=== PATIENT | female | born 1960 | race African-American/Black ===

== ENCOUNTER 2018-10-16 03:47 | Inpatient (IN) | payer MEDICARE, OTHER ==
[~2018-10-16] VITALS: Ht 157.5 cm; Wt 112.3 kg
[~2018-10-16 03:47] MED LIST: ASPI-986 PO; BENA20TA10 PO; CLOP75TA16 PO; GLUCOMETER; GLUCOMETER STRIPS; GLYB5TAB7 PO; INSULIN NPH SUBCUT; LIP40 PO; METF-416 PO; [UNRECOGNIZED DRUG - CODE] MC; [UNRECOGNIZED DRUG - SUPPLY]
[2018-10-16 09:53] LABS: HEMATOCRIT. 35.2 % (36.0-48.0); MEAN CORPUSCULAR HEMOGLOBIN 24.5 pg (28.0-32.0); MEAN CORPUSCULAR VOLUME 78.3 fL (81.0-99.0); MEAN PLATELET VOLUME 9.7 fl (7.4-10.4); PLATELET 233 x1000/uL (130-400); RED BLOOD CELL COUNT 4.49 mill/uL (4.2-5.4); RED CELL DISTRIBUTION WIDTH 20.1 % (11.6-14.6)
[2018-10-16 10:00] LABS: CHLORIDE 114 mEq/L (98-107)
[2018-10-16 10:25] LABS: PLATELET ESTIMATE NORMAL
[2018-10-16] MEDS ORDERED: ACETAMINOPHEN 325MG TABLET PO PRN (12:15)
[2018-10-16] MEDS ORDERED: DOCUSATE SODIUM 100MG CAPSULE PO PRN (12:15)
[2018-10-16] MEDS ORDERED: HYDROCODONE/ACETAMINOPHEN 5/325MG TABLET PO PRN (12:15)
[2018-10-16] MEDS ORDERED: NA PHOS,M-B/NA PHOS,DI-BA ENEMA 118ML PR PRN (12:15)
[2018-10-16] MEDS ORDERED: MAGNESIUM/ALUMINUM HYDROXIDE/SIMETHICONE 30ML UDC PO PRN (12:15)
[2018-10-16] MEDS ORDERED: CLONIDINE 0.1MG TABLET PO PRN (12:15)
[2018-10-16] MEDS: AMLODIPINE 10MG TABLET PO SCH (15:22)
[2018-10-16] MEDS: ENOXAPARIN 40MG/0.4ML SYR SUBCUT SCH (15:30)
[2018-10-16 16:12] LABS: CREATINE KINASE 149 IU/L (26-192)
[2018-10-16 16:13] LABS: CREATINE KINASE MB FRACTION 6.4 ng/mL (0.5-3.6)
[2018-10-16] MEDS ORDERED: METOPROLOL TARTRATE 25MG TABLET PO SCH (17:00)
[2018-10-16 23:39] LABS: CREATINE KINASE 147 IU/L (26-192)
[2018-10-16 23:40] LABS: CREATINE KINASE MB FRACTION 6.8 ng/mL (0.5-3.6)
[2018-10-17] MEDS: ONDANSETRON HCL 4MG/2ML INJ IV PRN ×2 (03:01→11:23)
[2018-10-17 05:26] LABS: CHLORIDE 113 mEq/L (98-107)
[2018-10-17 05:33] LABS: LDL CHOLESTEROL 30 mg/dL (5-100)
[2018-10-17 05:34] LABS: HDL CHOLESTEROL 53 mg/dL (40-59)
[2018-10-17 06:11] LABS: HEMATOCRIT. 32.4 % (36.0-48.0); MEAN CORPUSCULAR HEMOGLOBIN 23.9 pg (28.0-32.0); MEAN CORPUSCULAR VOLUME 77.7 fL (81.0-99.0); MEAN PLATELET VOLUME 10.1 fl (7.4-10.4); PLATELET 226 x1000/uL (130-400); RED BLOOD CELL COUNT 4.17 mill/uL (4.2-5.4); RED CELL DISTRIBUTION WIDTH 20.2 % (11.6-14.6)
[2018-10-17 07:45] LABS: PLATELET ESTIMATE NORMAL
[2018-10-17 09:15] VITALS: BP 144/85
[2018-10-17 09:30] VITALS: BP 144/85
[2018-10-17] MEDS: FUROSEMIDE 40MG/4ML VIAL IV SCH (10:46)
[2018-10-17] MEDS: AMLODIPINE 10MG TABLET PO SCH (10:47)
[2018-10-17] MEDS: ASPIRIN 81MG EC TABLET PO SCH (10:47)
[2018-10-17 12:13] VITALS: BP 154/86
[2018-10-17] MEDS ORDERED: DEXTROSE 50% WATER 50ML SYRINGE IV PRN (15:00)
[2018-10-17 16:16] VITALS: BP 136/77
[2018-10-17] MEDS ORDERED: AMLO5TAB88 MT (16:53)
[2018-10-17] MEDS ORDERED: NEPVIT MT (16:53)
[2018-10-17] MEDS ORDERED: ISOS60TA4 MT (16:53)
[2018-10-17] MEDS ORDERED: FURO40TA5 MT (16:53)
[2018-10-17] MEDS ORDERED: ACET-2853 MT (16:53)
[2018-10-17] MEDS ORDERED: FAMO20TA8 MT (16:53)
[2018-10-17] MEDS ORDERED: OXYB5TAB11 PO (16:53)
[2018-10-17] MEDS ORDERED: INSU100I28 SQ (16:53)
[2018-10-17] MEDS: ENOXAPARIN 40MG/0.4ML SYR SUBCUT SCH (17:27)
[2018-10-17] MEDS: BLOOD SUGAR DIAGNOSTIC STRIP TEST SCH ×2 (17:47→21:00)
[2018-10-17] MEDS: INSULIN LISPRO 100 UNITS/ML SUBCUT SCH ×2 (17:53→21:22)
[2018-10-17 20:00] VITALS: BP 118/70
[2018-10-17 23:54] VITALS: BP 153/92
[2018-10-18 04:00] VITALS: BP 158/95
[2018-10-18] MEDS: BLOOD SUGAR DIAGNOSTIC STRIP TEST SCH ×3 (06:40→17:31)
[2018-10-18] MEDS: INSULIN LISPRO 100 UNITS/ML SUBCUT SCH ×3 (07:43→17:31)
[2018-10-18 08:00] VITALS: BP 130/80
[2018-10-18] MEDS: FUROSEMIDE 40MG/4ML VIAL IV SCH (08:57)
[2018-10-18] MEDS: ASPIRIN 81MG EC TABLET PO SCH (08:58)
[2018-10-18] MEDS: AMLODIPINE 10MG TABLET PO SCH (08:58)
[2018-10-18 11:35] VITALS: BP 130/72
[2018-10-18 16:02] VITALS: BP 134/76
[2018-10-18] MEDS: ENOXAPARIN 40MG/0.4ML SYR SUBCUT SCH (16:19)
[2018-10-18 17:34] VITALS: BP 134/78
== END 2018-10-18 19:35 | disposition home health service (06) | DRG 291 ==
LOC: ER 03:47 → 6WST 10:44 → SUPCPDRO 12:08 → EDBEDREQSVC 21:09 → ENRESERV 10-17 07:21
PROVIDERS: ADMIT Hospitalist; ATTEND Hospitalist
DX: I13.0 Hypertensive heart and chronic kidney disease with heart failure and stage 1 through stage 4 chronic kidney disease, or unspecified chronic kidney disease (principal); I50.33 Acute on chronic diastolic (congestive) heart failure; N17.9 Acute kidney failure, unspecified; I69.354 Hemiplegia and hemiparesis following cerebral infarction affecting left non-dominant side; N18.9 Chronic kidney disease, unspecified; E78.5 Hyperlipidemia, unspecified; E11.22 Type 2 diabetes mellitus with diabetic chronic kidney disease; Z79.4 Long term (current) use of insulin; Z88.6 Allergy status to analgesic agent; Z79.82 Long term (current) use of aspirin; Z79.84 Long term (current) use of oral hypoglycemic drugs; Z79.899 Other long term (current) drug therapy
CPT/HCPCS: 36415; 71045; 80061; 82550; 82553; 82962; 83036; 83735; 83880; 84484; 93005; 93306; 93970; 96374; 99285; J1650; J1815; J1940; J2405

== ENCOUNTER 2019-08-02 09:26 | Inpatient (IN) | payer MEDICARE, MEDICAID ==
[~2019-08-02] VITALS: Ht 157.5 cm; Wt 78.9 kg
[~2019-08-02 09:26] MED LIST changes: +ACET-2853 MT; +AMLO5TAB88 MT; -CLOP75TA16 PO; +CLOP75TA4 PO; +FAMO20TA8 MT; +FURO40TA5 MT; +INSU100I28 SQ; +ISOS60TA4 MT; +NEPVIT MT; +OXYB5TAB11 PO
[2019-08-02] MEDS ORDERED: ASPIRIN 81MG TABLET PO ONE (10:30)
[2019-08-02] MEDS ORDERED: FUROSEMIDE 40MG/4ML VIAL IV ONE (10:30)
[2019-08-02 10:46] LABS: BASOPHILS % 1.2 % (0.0-2.0); EOSINOPHILS % 3.2 % (0.0-5.0); HEMATOCRIT. 32.4 % (36.0-48.0); HEMOGLOBIN. 10.3 g/dL (12.0-16.0); LYMPHOCYTES % 20.6 % (20.0-50.0); MEAN CORPUSCULAR HEMOGLOBIN 27.7 pg (28.0-32.0); MEAN CORPUSCULAR VOLUME 87.1 fL (81.0-99.0); MEAN PLATELET VOLUME 8.9 fl (7.4-10.4); MONOCYTES % 12.5 % (2.0-8.0); NEUTROPHILS % 62.5 % (40.0-76.0); PLATELET 300 x1000/uL (130-400); RED BLOOD CELL COUNT 3.73 mill/uL (4.2-5.4); RED CELL DISTRIBUTION WIDTH 21.8 % (11.6-14.6)
[2019-08-02 12:16] LABS: CLARITY URINE CLEAR (CLEAR); COLOR URINE YELLOW (YELLOW); KETONES URINE NEGATIVE (NEGATIVE); LEUKOCYTE ESTERASE URINE NEGATIVE (NEGATIVE); NITRITE URINE NEGATIVE (NEGATIVE); OCCULT BLOOD URINE TRACE (NEGATIVE); PH URINE 5.5 (4.5-8.0); PROTEIN URINE 2+ (NEGATIVE); SPECIFIC GRAVITY URINE 1.008 (1.005-1.030); UROBILINOGEN URINE 0.2 E.U./dL (0.2-1.0)
[2019-08-02 12:37] LABS: CHLORIDE 116 mEq/L (98-107)
[2019-08-02] MEDS ORDERED: HYDRALAZINE HCL 100MG TABLET PO ONE (12:45)
[2019-08-02 15:37] VITALS: BP 150/86
[2019-08-02] MEDS ORDERED: ENOXAPARIN 40MG/0.4ML SYR SUBCUT SCH (16:45)
[2019-08-02] MEDS ORDERED: DEXTROSE 50% WATER 50ML SYRINGE IV PRN ×2 (16:45)
[2019-08-02] MEDS: BLOOD SUGAR DIAGNOSTIC STRIP TEST SCH ×2 (16:53→20:30)
[2019-08-02] MEDS: ENOXAPARIN 30MG/0.3ML SYR SUBCUT SCH (18:22)
[2019-08-02] MEDS: INSULIN LISPRO 100 UNITS/ML SUBCUT SCH ×2 (18:23→20:41)
[2019-08-02] MEDS ORDERED: INFLUENZA VIRUS VACCINE(AFLURIA) 0.5ML SYR IM ONE (19:30)
[2019-08-02 20:22] VITALS: BP 154/87
[2019-08-03 00:35] VITALS: BP 138/74
[2019-08-03 04:11] VITALS: BP 125/65
[2019-08-03] MEDS: BLOOD SUGAR DIAGNOSTIC STRIP TEST SCH ×4 (06:21→20:42)
[2019-08-03] MEDS: INSULIN LISPRO 100 UNITS/ML SUBCUT SCH ×4 (07:19→20:42)
[2019-08-03 08:05] VITALS: BP 183/96
[2019-08-03] MEDS: FUROSEMIDE 40MG/4ML VIAL IVP SCH (08:32)
[2019-08-03] MEDS ORDERED: ASPIRIN 325MG EC TABLET PO SCH (09:30)
[2019-08-03] MEDS ORDERED: ACETAMINOPHEN 650MG/20.3ML UDC PO PRN (09:30)
[2019-08-03] MEDS: CLOPIDOGREL 75MG TABLET PO SCH (10:06)
[2019-08-03] MEDS: FOLIC ACID/VITAMIN B COMP W-C TABLET PO SCH (10:06)
[2019-08-03] MEDS: BENAZEPRIL 10MG TABLET PO SCH (10:06)
[2019-08-03] MEDS: AMLODIPINE 5MG TABLET PO SCH (10:07)
[2019-08-03] MEDS: ISOSORBIDE MONONITRATE 60MG TABLET SR 24HR PO SCH (10:07)
[2019-08-03] MEDS: OXYBUTYNIN CHLORIDE 5MG TABLET PO SCH (10:11)
[2019-08-03 11:54] VITALS: BP 172/97
[2019-08-03 13:57] LABS: *AMPHETAMINES SCREEN URINE NEGATIVE (NEGATIVE); *BARBITURATES SCREEN URINE NEGATIVE (NEGATIVE); *BENZODIAZEPINES SCREEN URINE NEGATIVE (NEGATIVE); *COCAINE SCREEN URINE NEGATIVE (NEGATIVE)
[2019-08-03 13:58] LABS: CANNABINOID URINE SCREEN NEGATIVE (NEGATIVE); METHADONE URINE SCREEN NEGATIVE (NEGATIVE); OPIATES URINE SCREEN NEGATIVE (NEGATIVE); PHENCYCLIDINE URINE SCREEN NEGATIVE (NEGATIVE)
[2019-08-03] MEDS ORDERED: CLONIDINE 0.1MG TABLET PO PRN ×2 (15:15)
[2019-08-03 15:57] VITALS: BP 173/87
[2019-08-03] MEDS: GLYBURIDE 5MG TABLET PO SCH (16:59)
[2019-08-03] MEDS: ENOXAPARIN 30MG/0.3ML SYR SUBCUT SCH (17:00)
[2019-08-03 20:00] VITALS: BP_SYST 135; BP_SYST 156; BP_DIAS 77; BP_DIAS 81
[2019-08-03 20:14] LABS: CREATINE KINASE MB FRACTION 2.5 ng/mL (0.5-3.6)
[2019-08-03 20:15] LABS: T4 FREE 1.21 ng/dL (0.76-1.46)
[2019-08-03] MEDS ORDERED: FAMOTIDINE 20MG TABLET PO SCH (21:00)
[2019-08-03] MEDS ORDERED: ATORVASTATIN CALCIUM 40MG TABLET PO SCH (21:00)
[2019-08-04] VITALS: BP 160/90
[2019-08-04 04:00] VITALS: BP 150/86
[2019-08-04] MEDS: GLYBURIDE 5MG TABLET PO SCH ×2 (06:36→18:01)
[2019-08-04] MEDS: BLOOD SUGAR DIAGNOSTIC STRIP TEST SCH ×3 (06:36→17:48)
[2019-08-04] MEDS: INSULIN LISPRO 100 UNITS/ML SUBCUT SCH ×3 (07:08→17:48)
[2019-08-04 07:23] LABS: CREATINE KINASE MB FRACTION 2.8 ng/mL (0.5-3.6)
[2019-08-04] MEDS: FOLIC ACID/VITAMIN B COMP W-C TABLET PO SCH (08:42)
[2019-08-04] MEDS: OXYBUTYNIN CHLORIDE 5MG TABLET PO SCH (08:42)
[2019-08-04] MEDS: BENAZEPRIL 10MG TABLET PO SCH (08:42)
[2019-08-04] MEDS: AMLODIPINE 5MG TABLET PO SCH (08:42)
[2019-08-04] MEDS: CLOPIDOGREL 75MG TABLET PO SCH (08:43)
[2019-08-04] MEDS: ISOSORBIDE MONONITRATE 60MG TABLET SR 24HR PO SCH (08:43)
[2019-08-04] MEDS: FUROSEMIDE 40MG/4ML VIAL IVP SCH (08:43)
[2019-08-04] MEDS ORDERED: ASPIRIN 325MG EC TABLET PO SCH (09:00)
[2019-08-04 12:00] VITALS: BP 150/81
[2019-08-04 14:55] VITALS: BP 150/81
[2019-08-04 16:00] VITALS: BP 158/88
[2019-08-04] MEDS ORDERED: HYDRALAZINE HCL 50MG TABLET PO SCH (17:00)
[2019-08-04] MEDS: ENOXAPARIN 30MG/0.3ML SYR SUBCUT SCH (18:02)
[2019-08-20] MEDS ORDERED: ASPI-1393 PO (01:07)
== END 2019-08-04 18:52 | disposition home or self-care (01) | DRG 292 ==
LOC: ER 09:55 → EDBEDREQ 13:24 → EDBEDREQTM 13:24 → ENRESERV 14:16 → 6WST 16:22
PROVIDERS: ADMIT Family Medicine; ATTEND Family Medicine
DX: I11.0 Hypertensive heart disease with heart failure (principal); J98.11 Atelectasis; E44.0 Moderate protein-calorie malnutrition; I50.41 Acute combined systolic (congestive) and diastolic (congestive) heart failure; N28.9 Disorder of kidney and ureter, unspecified; M79.604 Pain in right leg; M79.605 Pain in left leg; E66.9 Obesity, unspecified; D64.9 Anemia, unspecified; E11.9 Type 2 diabetes mellitus without complications; E78.5 Hyperlipidemia, unspecified; Z86.73 Personal history of transient ischemic attack (TIA), and cerebral infarction without residual deficits; Z79.899 Other long term (current) drug therapy; Z79.82 Long term (current) use of aspirin; Z79.4 Long term (current) use of insulin; Z79.84 Long term (current) use of oral hypoglycemic drugs; Z88.8 Allergy status to other drugs, medicaments and biological substances; Z91.14 Patient's other noncompliance with medication regimen; Z68.35 Body mass index [BMI] 35.0-35.9, adult
CPT/HCPCS: 36415; 71045; 80053; 80061; 80305; 81003; 82550; 82553; 82962; 83036; 83880; 84439; 84443; 84484; 85025; 85379; 90686; 93005; 93306; 93970; 96374; 99285; J1650; J1815; J1940

== ENCOUNTER 2019-08-19 12:46 | Inpatient (IN) | payer MEDICARE, MEDICAID ==
[~2019-08-19] VITALS: Ht 158.8 cm; Wt 90.7 kg
[~2019-08-19 12:46] MED LIST changes: -ACET-2853 MT; -GLUCOMETER; -GLUCOMETER STRIPS; -INSULIN NPH SUBCUT; -OXYB5TAB11 PO; +OXYB5TAB17 PO; -[UNRECOGNIZED DRUG - SUPPLY]
[2019-08-19] MEDS ORDERED: NITROGLYCERIN OINT 1GM/INCH UDPKT TD ONE (16:45)
[2019-08-19] MEDS ORDERED: ASPIRIN 81MG TABLET PO ONE (16:45)
[2019-08-19] MEDS ORDERED: FUROSEMIDE 40MG/4ML VIAL IV ONE (16:45)
[2019-08-19 17:51] LABS: CHLORIDE 112 mEq/L (98-107)
[2019-08-19 17:56] LABS: BASOPHILS % 1.1 % (0.0-2.0); EOSINOPHILS % 2.8 % (0.0-5.0); HEMATOCRIT. 33.7 % (36.0-48.0); HEMOGLOBIN. 10.6 g/dL (12.0-16.0); LYMPHOCYTES % 23.2 % (20.0-50.0); MEAN CORPUSCULAR HEMOGLOBIN 27.7 pg (28.0-32.0); MEAN CORPUSCULAR VOLUME 87.8 fL (81.0-99.0); MEAN PLATELET VOLUME 10.4 fl (7.4-10.4); MONOCYTES % 8.6 % (2.0-8.0); NEUTROPHILS % 64.3 % (40.0-76.0); PLATELET 235 x1000/uL (130-400); RED BLOOD CELL COUNT 3.84 mill/uL (4.2-5.4); RED CELL DISTRIBUTION WIDTH 17.9 % (11.6-14.6)
[2019-08-19 17:58] LABS: INR 1.2; PROTHROMBIN TIME 12.2 sec (9.6-11.0)
[2019-08-20] VITALS (8 sets, daily range): BP systolic 127–163; BP diastolic 71–98
[2019-08-20] MEDS ORDERED: IPRATROPIUM/ALBUTEROL 0.5-3(2.5)MG/3ML NEB HHN PRN (00:45)
[2019-08-20] MEDS ORDERED: ACETAMINOPHEN 325MG TABLET PO PRN (00:45)
[2019-08-20] MEDS ORDERED: DIPHENHYDRAMINE 50MG/ML VIAL IV PRN (00:45)
[2019-08-20] MEDS ORDERED: MAGNESIUM/ALUMINUM HYDROXIDE/SIMETHICONE 30ML UDC PO PRN (00:45)
[2019-08-20] MEDS ORDERED: ONDANSETRON HCL 4MG/2ML INJ IV PRN (00:45)
[2019-08-20] MEDS ORDERED: GUAIFENESIN 200MG/10ML SUGAR FREE UDC PO PRN (00:45)
[2019-08-20] MEDS ORDERED: DEXTROSE 50% WATER 50ML SYRINGE IV PRN (00:45)
[2019-08-20] MEDS ORDERED: CLONIDINE 0.1MG TABLET PO PRN (00:45)
[2019-08-20] MEDS ORDERED: ASPI-1497 PO (01:07)
[2019-08-20] MEDS: NITROGLYCERIN OINT 1GM/INCH UDPKT TD SCH ×3 (06:46→22:10)
[2019-08-20] MEDS: GLYBURIDE 5MG TABLET PO SCH (06:47)
[2019-08-20] MEDS: SODIUM CHLORIDE 0.9% INJ 3ML FLUSH IVF SCH ×3 (06:47→20:40)
[2019-08-20] MEDS: INSULIN LISPRO 100 UNITS/ML SUBCUT SCH ×4 (08:20→20:46)
[2019-08-20] MEDS ORDERED: ENOXAPARIN 40MG/0.4ML SYR SUBCUT SCH (09:00)
[2019-08-20] MEDS ORDERED: FUROSEMIDE 40MG/4ML VIAL IVP SCH (09:00)
[2019-08-20] MEDS ORDERED: HYDRALAZINE HCL 50MG TABLET PO SCH (09:00)
[2019-08-20] MEDS ORDERED: AMLODIPINE 5MG TABLET PO SCH (09:00)
[2019-08-20] MEDS: CLOPIDOGREL 75MG TABLET PO SCH (09:47)
[2019-08-20] MEDS: ENOXAPARIN 30MG/0.3ML SYR SUBCUT SCH ×2 (09:48→20:40)
[2019-08-20] MEDS: ASPIRIN 325MG EC TABLET PO SCH (09:49)
[2019-08-20] MEDS: BLOOD SUGAR DIAGNOSTIC STRIP TEST SCH ×3 (11:45→20:40)
[2019-08-20] MEDS: FUROSEMIDE 40MG/4ML VIAL IVP SCH ×2 (13:19→17:59)
[2019-08-20] MEDS: AMLODIPINE 5MG TABLET PO SCH ×2 (13:21→20:39)
[2019-08-20] MEDS: HYDRALAZINE HCL 50MG TABLET PO SCH ×2 (15:22→22:10)
[2019-08-20] MEDS: INSULIN GLARGINE UD 100 UNITS/ML SYR SUBCUT SCH (15:23)
[2019-08-20 16:31] LABS: LDL CHOLESTEROL 47 mg/dL (5-100)
[2019-08-20 16:33] LABS: CREATINE KINASE 385 IU/L (26-192); HDL CHOLESTEROL 55 mg/dL (40-59)
[2019-08-20 16:34] LABS: CREATINE KINASE MB FRACTION 3.3 ng/mL (0.5-3.6); T4 FREE 1.33 ng/dL (0.76-1.46)
[2019-08-20] MEDS: FAMOTIDINE 20MG TABLET PO SCH (20:39)
[2019-08-20] MEDS: ATORVASTATIN CALCIUM 40MG TABLET PO SCH (20:39)
[2019-08-20 23:27] LABS: CREATINE KINASE 414 IU/L (26-192)
[2019-08-20 23:28] LABS: CREATINE KINASE MB FRACTION 3.6 ng/mL (0.5-3.6)
[2019-08-21] VITALS: BP 120/75
[2019-08-21 04:00] VITALS: BP 125/74
[2019-08-21] MEDS: SODIUM CHLORIDE 0.9% INJ 3ML FLUSH IVF SCH ×3 (06:43→22:39)
[2019-08-21] MEDS: BLOOD SUGAR DIAGNOSTIC STRIP TEST SCH ×4 (06:44→20:41)
[2019-08-21] MEDS: NITROGLYCERIN OINT 1GM/INCH UDPKT TD SCH ×3 (06:44→22:39)
[2019-08-21] MEDS: HYDRALAZINE HCL 50MG TABLET PO SCH ×3 (06:44→22:39)
[2019-08-21] MEDS: INSULIN LISPRO 100 UNITS/ML SUBCUT SCH ×4 (06:45→20:41)
[2019-08-21] MEDS: GLYBURIDE 5MG TABLET PO SCH (06:45)
[2019-08-21] MEDS: FUROSEMIDE 40MG/4ML VIAL IVP SCH ×2 (06:46→17:31)
[2019-08-21 08:00] VITALS: BP 141/88
[2019-08-21] MEDS: ENOXAPARIN 30MG/0.3ML SYR SUBCUT SCH (09:25)
[2019-08-21] MEDS: AMLODIPINE 5MG TABLET PO SCH ×2 (09:25→20:45)
[2019-08-21] MEDS: ASPIRIN 325MG EC TABLET PO SCH (09:25)
[2019-08-21] MEDS: CLOPIDOGREL 75MG TABLET PO SCH (09:25)
[2019-08-21 10:00] LABS: BASOPHILS % 0.4 % (0.0-2.0); EOSINOPHILS % 3.3 % (0.0-5.0); HEMATOCRIT. 29.3 % (36.0-48.0); HEMOGLOBIN. 9.6 g/dL (12.0-16.0); LYMPHOCYTES % 20.5 % (20.0-50.0); MEAN CORPUSCULAR HEMOGLOBIN 28.5 pg (28.0-32.0); MEAN CORPUSCULAR VOLUME 86.8 fL (81.0-99.0); MEAN PLATELET VOLUME 9.7 fl (7.4-10.4); MONOCYTES % 13.6 % (2.0-8.0); NEUTROPHILS % 62.2 % (40.0-76.0); PLATELET 265 x1000/uL (130-400); RED BLOOD CELL COUNT 3.38 mill/uL (4.2-5.4); RED CELL DISTRIBUTION WIDTH 17.9 % (11.6-14.6)
[2019-08-21 10:38] LABS: CHLORIDE 110 mEq/L (98-107)
[2019-08-21 10:45] LABS: PHOSPHORUS 3.5 mg/dL (2.5-4.9)
[2019-08-21 10:48] LABS: CREATINE KINASE 371 IU/L (26-192)
[2019-08-21] MEDS: INSULIN GLARGINE UD 100 UNITS/ML SYR SUBCUT SCH (11:08)
[2019-08-21 12:00] VITALS: BP 127/82
[2019-08-21] MEDS: CARVEDILOL 3.125 MG TABLET PO SCH ×2 (13:22→20:45)
[2019-08-21 16:00] VITALS: BP 132/86
[2019-08-21 20:00] VITALS: BP 153/85
[2019-08-21] MEDS: ATORVASTATIN CALCIUM 40MG TABLET PO SCH (20:44)
[2019-08-21] MEDS: FAMOTIDINE 20MG TABLET PO SCH (20:45)
[2019-08-22] VITALS: BP 130/80
[2019-08-22 04:00] VITALS: BP 135/75
[2019-08-22] MEDS: BLOOD SUGAR DIAGNOSTIC STRIP TEST SCH ×4 (05:50→20:49)
[2019-08-22] MEDS: NITROGLYCERIN OINT 1GM/INCH UDPKT TD SCH ×3 (06:17→21:54)
[2019-08-22] MEDS: HYDRALAZINE HCL 50MG TABLET PO SCH ×3 (06:17→21:53)
[2019-08-22] MEDS: GLYBURIDE 5MG TABLET PO SCH (06:17)
[2019-08-22] MEDS: FUROSEMIDE 40MG/4ML VIAL IVP SCH ×2 (06:17→17:54)
[2019-08-22] MEDS: SODIUM CHLORIDE 0.9% INJ 3ML FLUSH IVF SCH ×3 (06:17→21:54)
[2019-08-22] MEDS: INSULIN LISPRO 100 UNITS/ML SUBCUT SCH ×4 (06:18→22:04)
[2019-08-22 08:00] VITALS: BP 139/87
[2019-08-22] MEDS: CLOPIDOGREL 75MG TABLET PO SCH (09:07)
[2019-08-22] MEDS: AMLODIPINE 5MG TABLET PO SCH ×2 (09:07→21:53)
[2019-08-22] MEDS: ASPIRIN 325MG EC TABLET PO SCH (09:07)
[2019-08-22] MEDS: CARVEDILOL 3.125 MG TABLET PO SCH ×2 (09:07→21:53)
[2019-08-22] MEDS: ENOXAPARIN 40MG/0.4ML SYR SUBCUT SCH (09:08)
[2019-08-22] MEDS: INSULIN GLARGINE UD 100 UNITS/ML SYR SUBCUT SCH (10:18)
[2019-08-22 12:00] VITALS: BP 137/77
[2019-08-22 16:00] VITALS: BP 134/80
[2019-08-22 20:00] VITALS: BP 130/80
[2019-08-22] MEDS: ATORVASTATIN CALCIUM 40MG TABLET PO SCH (21:53)
[2019-08-22] MEDS: FAMOTIDINE 20MG TABLET PO SCH (21:53)
[2019-08-22] MEDS ORDERED: MAGNESIUM HYDROXIDE 400MG/5ML 30ML UDC PO PRN (23:30)
[2019-08-23] VITALS: BP 120/70
[2019-08-23 04:00] VITALS: BP 130/70
[2019-08-23] MEDS: HYDRALAZINE HCL 50MG TABLET PO SCH ×2 (05:25→13:42)
[2019-08-23] MEDS: SODIUM CHLORIDE 0.9% INJ 3ML FLUSH IVF SCH ×2 (05:25→13:41)
[2019-08-23] MEDS: NITROGLYCERIN OINT 1GM/INCH UDPKT TD SCH ×2 (05:25→13:42)
[2019-08-23] MEDS: BLOOD SUGAR DIAGNOSTIC STRIP TEST SCH ×3 (05:53→16:51)
[2019-08-23] MEDS: INSULIN LISPRO 100 UNITS/ML SUBCUT SCH ×3 (06:29→16:55)
[2019-08-23] MEDS: FUROSEMIDE 40MG/4ML VIAL IVP SCH (06:29)
[2019-08-23] MEDS: GLYBURIDE 5MG TABLET PO SCH (06:29)
[2019-08-23 08:00] VITALS: BP 144/87
[2019-08-23] MEDS ORDERED: NA PHOS,M-B/NA PHOS,DI-BA ENEMA 118ML PR SCH (08:45)
[2019-08-23] MEDS: CLOPIDOGREL 75MG TABLET PO SCH (09:44)
[2019-08-23] MEDS: CARVEDILOL 3.125 MG TABLET PO SCH (09:44)
[2019-08-23] MEDS: ASPIRIN 325MG EC TABLET PO SCH (09:45)
[2019-08-23] MEDS: AMLODIPINE 5MG TABLET PO SCH (09:45)
[2019-08-23] MEDS: ENOXAPARIN 40MG/0.4ML SYR SUBCUT SCH (09:45)
[2019-08-23 12:00] VITALS: BP 145/85
[2019-08-23 14:30] VITALS: BP 143/85
[2019-08-23 16:00] VITALS: BP 149/90
== END 2019-08-23 17:30 | DRG 682 ==
LOC: ER 12:46 → EDBEDREQ 19:11 → EDBEDREQTM 19:11 → ENRESERV 22:51 → 5WST 08-20 00:52 → CANBEDREQ 08-20 08:43
PROVIDERS: ADMIT Internal Medicine; ATTEND Internal Medicine
DX: N17.9 Acute kidney failure, unspecified (principal); I50.23 Acute on chronic systolic (congestive) heart failure; I13.0 Hypertensive heart and chronic kidney disease with heart failure and stage 1 through stage 4 chronic kidney disease, or unspecified chronic kidney disease; I42.9 Cardiomyopathy, unspecified; E78.5 Hyperlipidemia, unspecified; N18.9 Chronic kidney disease, unspecified; E66.9 Obesity, unspecified; E11.22 Type 2 diabetes mellitus with diabetic chronic kidney disease; E78.00 Pure hypercholesterolemia, unspecified; Z59.0 Homelessness; Z91.14 Patient's other noncompliance with medication regimen; Z68.36 Body mass index [BMI] 36.0-36.9, adult; Z88.5 Allergy status to narcotic agent; Z79.899 Other long term (current) drug therapy; Z79.82 Long term (current) use of aspirin
CPT/HCPCS: 36415; 71045; 78582; 80048; 80053; 80061; 82550; 82553; 82962; 83036; 83735; 83880; 84100; 84439; 84443; 84484; 85025; 85379; 93005; 93306; 93970; 96374; 99285; A9558; J1650; J1815; J1940